=== PATIENT | male | born 1965 | race Caucasian/White ===

== ENCOUNTER 2020-06-10 12:50 | Emergency (ER) | payer OTHER ==
[~2020-06-10] VITALS: Ht 170.2 cm; Wt 72.6 kg
--- NOTE | 2020-06-10 12:50 | NUR ---
Patient BIBA BLS, transferred to bed 11. RN evaluating patient at bedside.
[2020-06-10 13:10] VITALS: BP 102/68
--- NOTE | 2020-06-10 13:10 | NUR ---
VSS. EUPNIC. NO RESPIRATORY DISTRESS.
--- NOTE | 2020-06-10 13:10 | NUR ---
54 Y/O M BIBA FROM STREETS C/C BILATERAL HIP PAIN. PER EMS PT SLEEPING ON BUS STOP AND FELL TO GROUND WHILE SLEEP, NO LOC/HEAD TRAUMA. PER EMS BILATERAL HIP PAIN IS CHRONIC, PT TAKEN TO [facility] PAST DAYS FOR SAME C/C. PT DX WITH OSTEOARTHRITIS. PT PRESENTS CURRENTLY IN PAIN 06/28. A/OX3. AMBULATORY. NKA. HX OSTEOARTHRITIS,ALCOHOL ABUSE. DENIES DRINKING ALCHOL TODAY. NO RX. NO NVD. SIDE RAIL X2.
[2020-06-10] MEDS ORDERED: IBUPROFEN 600 MG TAB PO ONE (13:35)
[2020-06-10] MEDS ORDERED: ACETAMINOPHEN EXTRA STRENGTH 500 MG TAB PO ONE (13:35)
--- NOTE | 2020-06-10 13:57 | NUR ---
RAD AT BEDSIDE
[2020-06-10 14:57] VITALS: BP 102/68
--- NOTE | 2020-06-10 14:57 | NUR ---
Patient discharged with v/s stable. Written and verbal after care instructions given and explained. Patient alert, oriented and verbalized understanding of instructions. Ambulatory with steady gait. All questions addressed prior to discharge. ID band removed. Patient advised to follow up with PMD. Rx of TYLENOL given. Patient educated on indication of medication including possible reaction and side effects. Opportunity to ask questions provided and answered. HOMELESS PACKET PROVIDED TO PATIENT; FOOD PROVIDED ; CLOTHING APPROPIATE FOR WEATHER ; PT HAD OWN TRANSPORTATION
== END 2020-06-10 14:57 | disposition home or self-care (01) ==
LOC: MED 12:50
DX: M25.552 Pain in left hip (principal); M25.551 Pain in right hip; Z59.0 Homelessness; W18.39XA Other fall on same level, initial encounter; Y93.89 Activity, other specified; Y92.89 Other specified places as the place of occurrence of the external cause; Y99.8 Other external cause status
CPT/HCPCS: 73521; 99283; Q0092

== ENCOUNTER 2020-06-11 07:17 | Emergency (ER) | payer OTHER ==
[~2020-06-11] VITALS: Ht 182.9 cm; Wt 83.9 kg
--- NOTE | 2020-06-11 07:19 | NUR ---
NISH BLANKENSHIP AND PLACED IN BED 6 BY EMS.
[2020-06-11 07:21] VITALS: BP 103/77
--- NOTE | 2020-06-11 07:26 | NUR ---
BIBA C/O BL HIP PAIN AND ETOH. PT WAS FOUND LAYING ON THE SIDEWALK. PT DENIES ANY FEVER, CP, SOB, OR COUGH AT THIS TIME; PATIENT STATES PAIN OF 9/10 AT THIS TIME; VSS; PATIENT POSITIONED FOR COMFORT; HOB ELEVATED; BEDRAILS UP X1; BED DOWN. ER MD MADE AWARE OF PT STATUS. PT IS ON MONITOR AND WILL CONTINUE MONITORING PT'S VITALS.
--- NOTE | 2020-06-11 07:38 | NUR ---
Dr. Jordan is evaluating the patient at bedside.
--- NOTE | 2020-06-11 08:05 | NUR ---
Regular diet breakfast provided to pt. Patient is eating at bedside.
--- NOTE | 2020-06-11 09:05 | NUR ---
Patient is sleeping in the bed. VSS showed on the monitor.
--- NOTE | 2020-06-11 10:00 | NUR ---
Patient is sleeping in the bed. VSS showed on the monitor.
[2020-06-11 11:03] VITALS: BP 115/75
--- NOTE | 2020-06-11 11:03 | NUR ---
Patient discharged with v/s stable. Written and verbal after care instructions given and explained. Patient alert, oriented and verbalized understanding of instructions. Ambulatory with to car. All questions addressed prior to discharge. Patient refused to remove ID band . Patient advised to follow up with PMD. Rx of Naprosyn given. Patient educated on indication of medication including possible reaction and side effects. Opportunity to ask questions provided and answered.
== END 2020-06-11 11:02 | disposition home or self-care (01) ==
LOC: MED 07:17
DX: F10.129 Alcohol abuse with intoxication, unspecified (principal); R45.851 Suicidal ideations; M25.551 Pain in right hip; M25.552 Pain in left hip; Z59.0 Homelessness
CPT/HCPCS: 99282

== ENCOUNTER 2020-07-14 08:09 | Emergency (ER) | payer OTHER ==
[~2020-07-14] VITALS: Ht 185.4 cm; Wt 86.2 kg
[2020-07-14 08:12] VITALS: BP 122/83
[2020-07-14] MEDS ORDERED: KETOROLAC 60 MG/2 ML VIAL IM ONE (08:25)
[2020-07-14 08:37] LABS: BASOPHILS % (AUTO) 0.7 % (0.0-2.0); EOSINOPHILS # (AUTO) 0.2 K/uL (0-0.4); HEMATOCRIT 44.1 % (36-52); HEMOGLOBIN 15.1 g/dL (12.0-18.0); LYMPHOCYTES # (AUTO) 1.8 K/uL (2.0-11.5); LYMPHOCYTES % (AUTO) 42.8 % (20.5-51.1); MEAN CORPUSCULAR HEMOGLOBIN 35 pg (27-31); MEAN CORPUSCULAR HGB CONC 34 g/dL (33-37); MEAN CORPUSCULAR VOLUME 101.3 fL (80-94); MONOCYTES # (AUTO) 0.3 K/uL (0.8-1.0); MONOCYTES % (AUTO) 6.7 % (1.7-9.3); NEUTROPHILS # (AUTO) 1.8 K/uL (1.8-7.7); NEUTROPHILS % (AUTO) 44.8 % (42.2-75.2); PLATELET COUNT (AUTO) 109 K/uL (140-450); RED BLOOD CELL COUNT(AUTO) 4.36 MIL/uL (4.20-6.10); RED CELL DISTRIBUTION WIDTH 17.1 % (11.6-13.7); WHITE BLOOD COUNT (AUTO) 4.1 K/uL (4.8-10.8)
[2020-07-14 09:08] LABS: ALBUMIN 4.1 g/dL (3.4-5.0); ANION GAP 17.7 (8-16); ASPARTATE AMINOTRANSFERASE 81 U/L (15-37); CHLORIDE 106 mmol/L (98-107); CREATININE 0.9 mg/dL (0.6-1.3); GFR ARICAN-AMERICAN 112 mL/min (>90); GLUCOSE 89 mg/dL (74-106); POTASSIUM 3.7 mmol/L (3.5-5.1); SODIUM SERUM 143 mmol/L (136-145); TOTAL BILIRUBIN 0.8 mg/dL (0.0-1.0); UREA NITROGEN, BLOOD 12 mg/dL (7-18)
[2020-07-14 09:10] LABS: ACETAMINOPHEN < 0.5 ug/ml (10-30); SALICYLATE < 2.8 mg/dL (2.8-20.0)
[2020-07-14 10:29] LABS: APPEARANCE,URINE CLEAR (CLEAR); BILIRUBIN,URINE NEGATIVE (NEGATIVE); BLOOD, URINE NEGATIVE (NEGATIVE); COLOR,URINE ORANGE (YELLOW); LEUKOCYTE ESTERASE ,URINE NEGATIVE (NEGATIVE); NITRITE, URINE NEGATIVE (NEGATIVE); UGLUCOSE NEGATIVE (NEGATIVE)
[2020-07-14 10:49] LABS: BARBITURATE, URINE NEGATIVE ng/ml (NEG <=200); BENZODIAZEPINE, URINE NEGATIVE ng/mL (NEG <=200); CANNABINOID, URINE NEGATIVE ng/mL (NEG <=50); COCAINE, URINE NEGATIVE ng/mL (NEG <=300); OPIATE, URINE NEGATIVE ng/mL (NEG <=2000); PHENCYCLIDINE SCREEN,URINE NEGATIVE ng/mL (NEG <=25)
[2020-07-14] MEDS ORDERED: LEVO750T2 GT (11:33)
[2020-07-14] MEDS ORDERED: ARIP30TA1 PO (11:36)
[2020-07-14] MEDS ORDERED: DOPPLER MC ONE (14:41)
[2020-07-14 15:46] VITALS: BP 128/84
== END 2020-07-14 15:47 | disposition home or self-care (01) ==
LOC: MED 08:09
DX: R45.851 Suicidal ideations (principal); F10.129 Alcohol abuse with intoxication, unspecified; M25.551 Pain in right hip; M25.552 Pain in left hip; M79.604 Pain in right leg; M79.605 Pain in left leg; F17.200 Nicotine dependence, unspecified, uncomplicated
CPT/HCPCS: 36415; 80053; 80305; 81003; 84484; 85025; 87426; 96372; 99283; G0480; G0482; J1885

== ENCOUNTER 2020-08-21 20:35 | Emergency (ER) | payer OTHER ==
[~2020-08-21] VITALS: Ht 172.7 cm; Wt 68.0 kg
[2020-08-21 20:39] VITALS: BP 124/80
[2020-08-21] MEDS ORDERED: KETOROLAC 30 MG/ML VIAL IM ONE (21:10)
[2020-08-21 22:03] VITALS: BP 128/96
== END 2020-08-21 22:00 | disposition home or self-care (01) ==
LOC: MED 20:35
DX: M25.552 Pain in left hip (principal); M79.10 Myalgia, unspecified site; F17.210 Nicotine dependence, cigarettes, uncomplicated; Z71.6 Tobacco abuse counseling
CPT/HCPCS: 96372; 99283; J1885